=== PATIENT | male | born 1970 | race Two or more races ===

== ENCOUNTER 2020-07-07 07:00 | Day surgery (SDC) | payer OTHER ==
[~2020-07-07] VITALS: Ht 182.9 cm; Wt 86.2 kg
== END 2020-07-07 12:00 | disposition home or self-care (01) ==
LOC: CIR.AMB 07:00 → SEC-K 08:18 → ER 08:18 → CIR.AMB 12:00 → EDSTATUS 13:00 → SEC-K 15:01 → O/R 15:01 → SURG 16:52
PROVIDERS: ATTEND Surgery
DX: K80.00 Calculus of gallbladder with acute cholecystitis without obstruction (principal); Z20.822 Contact with and (suspected) exposure to COVID-19